=== PATIENT | male | born 1985 | race Caucasian/White ===

== ENCOUNTER 2017-07-25 09:29 | Emergency (ER) | payer BC ==
[~2017-07-25] VITALS: Ht 180.3 cm; Wt 86.2 kg
[2017-07-25] MEDS ORDERED: LORA5SOL7 PO (09:54)
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
[2017-07-25] MEDS ORDERED: CYCL10TA2 PO (11:26)
[2017-07-25] MEDS ORDERED: NABU750T PO (11:26)
[2017-07-25 11:35] VITALS: BP 127/79
== END 2017-07-25 11:37 | disposition home or self-care (01) ==
LOC: ER 09:29
DX: S16.1XXA Strain of muscle, fascia and tendon at neck level, initial encounter (principal); S00.33XA Contusion of nose, initial encounter; S00.83XA Contusion of other part of head, initial encounter; V18.4XXA Pedal cycle driver injured in noncollision transport accident in traffic accident, initial encounter; Y93.55 Activity, bike riding; Y92.828 Other wilderness area as the place of occurrence of the external cause; Y99.8 Other external cause status
CPT/HCPCS: 70450; 72125; 99284-25